=== PATIENT | male | born 1940 | race Caucasian/White ===

== ENCOUNTER 2024-11-16 10:30 | Inpatient (IN) | payer OTHER ==
[~2024-11-16] VITALS: Ht 177.8 cm; Wt 70.3 kg
[2024-11-16 11:17] VITALS: BP 154/64
[2024-11-16] MEDS ORDERED: MIDODRINE HCL2.5 MG PO (12:43)
[2024-11-16] MEDS ORDERED: VITAMIN D31250 MC1 PO (12:49)
[2024-11-16] MEDS ORDERED: COLACE100 MG PO (12:50)
[2024-11-16] MEDS ORDERED: ACETAMINOPHEN 325 MG TAB PO PRN (12:55)
[2024-11-16] MEDS ORDERED: MG-AL HYDROXIDE/SIMETICONE 30 ML UDC PO PRN (12:55)
[2024-11-16] MEDS ORDERED: Menthol/Zinc Oxide 4 GM THIN T PRN (13:15)
[2024-11-16] MEDS ORDERED: MEMANTINE HCL10 MG PO (13:17)
[2024-11-16] MEDS ORDERED: DONEPEZIL HCL10 MG PO (13:18)
[2024-11-16] MEDS ORDERED: SEROQUEL25 MG PO (13:19)
[2024-11-16] MEDS ORDERED: ZOLOFT100 MG PO (13:20)
[2024-11-16] MEDS ORDERED: LORazepam 1 MG TAB PO PRN (14:40)
[2024-11-16] MEDS ORDERED: hydrOXYzine hydrochloride 50 MG/ML VIAL IM PRN (14:45)
[2024-11-16] MEDS ORDERED: Water, Sterile 10 ML VIAL IM PRN (14:45)
[2024-11-16 20:00] VITALS: BP 110/59
[2024-11-16] MEDS ORDERED: Midodrine Hydrochloride 5 MG TAB PO SCH (21:00)
[2024-11-16] MEDS ORDERED: DOCUSATE SODIUM 100 MG CAP PO SCH (21:00)
[2024-11-17 07:39] LABS: B-hCG (QUALITATIVE) NEGATIVE; BUN 13 mg/dl (9-23); LDL CHOLESTEROL 147 mg/dL (9-159); SGPT/ALT 17 U/L (5-49)
[2024-11-17 08:00] VITALS: BP 156/79
[2024-11-17 08:18] LABS: VITAMIN D, 25-HYDROXY 66.7 ng/mL (30-100)
[2024-11-17 08:55] LABS: BASO # 0.1 10*3/uL (0.0-0.1); BASO % 0.7 % (0.0-1.0); EOS # 0.4 10*3/uL (0.0-0.4); EOS % 3.6 % (1.0-4.0); MEAN CELL VOLUME 84.4 fl (80.0-94.0); MEAN CORPUSCULAR HGB 26.2 pg (27.0-31.0); MONO # 1.1 10*3/uL (0.1-1.0); MONO % 10.5 % (3.0-9.0); NEUT # 7.0 10*3/uL (2.3-7.9); NEUT % 65.7 % (47.0-73.0); NUCLEATED RED BLOOD CELL 0.0 % (0.0-0.0); NUCLEATED RED BLOOD CELL 0.0 10*3/uL (0.0-0.0); PLATELET COUNT AUTOMATED 140 10*3/uL (130-400); RED CELL DISTRI WIDTH 15.0 % (0-14.5)
[2024-11-17] MEDS ORDERED: Rivastigmine Tartrate 4.6 MG/24 HR PATCH T SCH (09:00)
[2024-11-17 20:00] VITALS: BP 148/66
[2024-11-18 08:00] VITALS: BP 166/75
[2024-11-18 20:00] VITALS: BP 141/68
[2024-11-19 08:00] VITALS: BP 102/56
[2024-11-19] MEDS ORDERED: RIVASTIGMINE 13.3 MG/24 HR TDM T SCH (09:00)
[2024-11-19] MEDS ORDERED: Rivastigmine Tartrate 9.5 MG/24 HR PATCH T SCH (09:00)
[2024-11-19 20:00] VITALS: BP 142/82
[2024-11-20 08:00] VITALS: BP 147/83
[2024-11-20 20:00] VITALS: BP 148/78
[2024-11-20] MEDS ORDERED: Mirtazapine 15 MG TAB PO SCH (21:00)
[2024-11-21 09:23] VITALS: BP 135/80
[2024-11-21 20:00] VITALS: BP 132/72
[2024-11-22 07:43] LABS: MEAN CELL VOLUME 85.5 fl (80.0-94.0); MEAN CORPUSCULAR HGB 26.0 pg (27.0-31.0); MEAN PLATELET VOLUME 12.2 fl (9.6-12.3); NUCLEATED RED BLOOD CELL 0.0 % (0.0-0.0); NUCLEATED RED BLOOD CELL 0.0 10*3/uL (0.0-0.0); PLATELET COUNT AUTOMATED 236 10*3/uL (130-400); RED CELL DISTRI WIDTH 15.7 % (0-14.5)
[2024-11-22 07:48] LABS: MANUAL DIFF REFLEX YES
[2024-11-22 08:09] LABS: PLATELET SUFFICIENCY NORMAL (NORMAL)
[2024-11-22 08:12] LABS: BUN 15 mg/dl (9-23); SGPT/ALT 24 U/L (5-49)
[2024-11-22 08:46] VITALS: BP 95/58
[2024-11-22 09:52] LABS: BILIRUBIN Negative (Negative); BLOOD Negative (Negative); CLARITY Clear (Clear); COLOR Yellow (Yellow); KETONE Trace (Negative); LEUKO ESTERASE Negative (Negative); NITRITE Negative (Negative); PH 5.0 (4.5-8.0); SPECIFIC GRAVITY 1.025 (1.001-1.030); UROBILINOGEN 1.0 E.U./dl (0.0-1.0)
[2024-11-22 09:59] VITALS: BP 140/78
[2024-11-22 10:08] LABS: BACTERIA 1+; CALCIUM OXALATE CRYSTALS 1+; HYALINE CAST 21-30; MUCOUS 2+; WBC 16-20 wbc/hpf (0-5)
[2024-11-22 20:00] VITALS: BP 148/81
[2024-11-23 08:00] VITALS: BP 141/75
[2024-11-23 10:02] LABS: MEAN CELL VOLUME 85.2 fl (80.0-94.0); MEAN CORPUSCULAR HGB 26.0 pg (27.0-31.0); NUCLEATED RED BLOOD CELL 0.0 % (0.0-0.0); NUCLEATED RED BLOOD CELL 0.0 10*3/uL (0.0-0.0); RED CELL DISTRI WIDTH 15.4 % (0-14.5)
[2024-11-23 11:10] LABS: PLATELET COUNT AUTOMATED 130 10*3/uL (130-400)
[2024-11-23 11:14] LABS: MANUAL DIFF REFLEX YES
[2024-11-23 11:19] LABS: BASOPHILS 2 % (0-1)
[2024-11-23 11:20] LABS: PLATELET SUFFICIENCY NORMAL (NORMAL)
[2024-11-23 20:00] VITALS: BP 128/85
[2024-11-24 08:00] VITALS: BP 117/57
[2024-11-24 20:00] VITALS: BP 116/55
[2024-11-25 08:23] VITALS: BP 114/52
[2024-11-25 20:00] VITALS: BP 143/77
[2024-11-26 09:34] VITALS: BP 145/69
[2024-11-26 20:00] VITALS: BP 97/53
[2024-11-27 08:00] VITALS: BP 126/65
[2024-11-27] MEDS ORDERED: HYDROXYZINE PAM25 M1 PO ×2 (08:54)
[2024-11-27] MEDS ORDERED: MEMANTINE HCL10 MG PO (08:54)
[2024-11-27] MEDS ORDERED: MIRTAZAPINE15 M2 PO (08:54)
[2024-11-27] MEDS ORDERED: RIVASTIGMINE1 EAC2 T (08:54)
== END 2024-11-27 12:55 | DRG 883 ==
LOC: 3N 10:30
PROVIDERS: Counselor Professional; ADMIT Psychiatry & Neurology Psychiatry; ATTEND Psychiatry & Neurology Psychiatry
PROC: GZHZZZZ Group Psychotherapy (ICD-10-PCS; principal; 2024-11-16)
PROC: GZ56ZZZ Individual Psychotherapy, Supportive (ICD-10-PCS; 2024-11-16)
DX: F63.81 Intermittent explosive disorder (principal); I50.32 Chronic diastolic (congestive) heart failure; I42.9 Cardiomyopathy, unspecified; F02.82 Dementia in other diseases classified elsewhere, unspecified severity, with psychotic disturbance; F33.9 Major depressive disorder, recurrent, unspecified; G30.9 Alzheimer's disease, unspecified; D64.9 Anemia, unspecified; G47.30 Sleep apnea, unspecified; E78.5 Hyperlipidemia, unspecified; I25.10 Atherosclerotic heart disease of native coronary artery without angina pectoris; F41.9 Anxiety disorder, unspecified; Z87.440 Personal history of urinary (tract) infections; Z86.73 Personal history of transient ischemic attack (TIA), and cerebral infarction without residual deficits; Z95.0 Presence of cardiac pacemaker; Z88.8 Allergy status to other drugs, medicaments and biological substances